=== PATIENT | female | born 2005 | race African-American/Black ===

== ENCOUNTER 2025-04-08 15:08 | Emergency (ER) | payer BC ==
[~2025-04-08] VITALS: Ht 154.9 cm; Wt 55.0 kg
[2025-04-08 15:16] VITALS: TEMP 97.3
[2025-04-08 15:54] LABS: APPEARANCE,URINE CLEAR (CLEAR); GLUCOSE, URINE (UA) NEGATIVE (NEGATIVE); LEUKOCYTE ESTERASE ,URINE SMALL (NEGATIVE); NITRATE,URINE NEGATIVE (NEGATIVE); OCCULT BLOOD,URINE SMALL (NEGATIVE); SPECIFIC GRAVITIY, URINE 1.031 (1.003-1.030)
[2025-04-08 16:03] LABS: PLATELET COUNT (AUTO) 210 K/uL (150-450); RED BLOOD CELL COUNT(AUTO) 3.67 MIL/uL (4.00-5.20); RED CELL DISTRIBUTION WIDTH 12.9 % (11.5-14.5); WHITE BLOOD COUNT (AUTO) 4.7 K/uL (4.5-11.0)
[2025-04-08 16:10] LABS: CALCIUM, TOTAL 8.9 mg/dL (8.8-10.5); CREATININE 0.94 mg/dL (0.60-1.30); GLOMERULAR FILTR. RATE CALC > 60 mL/min (>60); GLUCOSE,RANDOM 107 mg/dL (70-110); SODIUM SERUM 137 mmol/L (136-145); UREA NITROGEN, BLOOD 13 mg/dL (7-18)
[2025-04-08 16:20] LABS: SQUAMOUS EPITHELIAL CELL,UR Rare /LPF (None Seen)
[2025-04-08 16:26] LABS: HCG,QUANTITATIVE < 1 mIU/mL (0-6)
[2025-04-08 20:15] VITALS: BP 89/53; PULSE 74; RESP 16; O2SAT 100
[2025-04-08] MEDS ORDERED: CEPH-558 PO (20:28)
[2025-04-08] MEDS ORDERED: CEPHALEXIN MONOHYDRATE 500 MG CAPSULE PO ONE (20:30)
== END 2025-04-09 02:08 | disposition home or self-care (01) ==
LOC: EMS 15:29
DX: N94.6 Dysmenorrhea, unspecified (principal); N39.0 Urinary tract infection, site not specified; R10.20 Pelvic and perineal pain unspecified side; Z88.1 Allergy status to other antibiotic agents
CPT/HCPCS: 74018; 76856; 80048; 81001; 83690; 84702; 85025; 87086; 87491; 87591; 99284; 36415-L1; 36415-TC